=== PATIENT | male | born 1950 | race Caucasian/White ===

== ENCOUNTER → 2017-09-16 | Outpatient (CLI) | payer MEDICARE ==
[~2017-09-16] MED LIST: AMIO200T7 PO; AMLO5TAB2 PO; CHOL500015 PO; DABI150C PO; GARL500T3 PO; OMEGA Q PLUS PO
[2017-09-16 12:08] LABS: BASOPHILS # (AUTO) 0.03 x10^3/uL (0-0.1); BASOPHILS % (AUTO) 1 % (0-1); EOSINOPHILS # (AUTO) 0.14 x10^3/uL (0-0.4); EOSINOPHILS % (AUTO) 3 % (1-7); LYMPHOCYTES # (AUTO) 1.25 x10^3/uL (1-3.4); LYMPHOCYTES % (AUTO) 25 % (22-44); MD NO; MEAN CORPUSCULAR HEMOGLOBIN 34.9 pg (27.5-34.5); MEAN CORPUSCULAR HGB CONC 34.4 g/dL (33.2-36.2); MEAN CORPUSCULAR VOLUME 101.5 fL (81-97); MEAN PLATELET VOLUME 8.5 fL (7.4-10.4); MONOCYTES # (AUTO) 0.53 x10^3/uL (0.2-0.8); MONOCYTES % (AUTO) 10 % (2-9); NEUTROPHILS # (AUTO) 3.15 x10^3/uL (1.8-6.8); NEUTROPHILS % (AUTO) 62 % (42-75); PLATELET COUNT 227 x10^3/uL (130-400); RED BLOOD COUNT 4.82 x10^6/uL (4.38-5.82); RED CELL DISTRIBUTION WIDTH 15.1 % (9.4-14.8)
[2017-09-16 12:11] LABS: INTERNATIONAL NORMALIZED RATIO 1.31 (0.93-1.1); PROTHROMBIN TIME 13.4 Seconds (9.6-11.5)
[2017-09-16 12:12] LABS: ALANINE AMINOTRANSFERASE 37 U/L (12-78); ALBUMIN 3.9 g/dL (3.4-5.0); ANION GAP 4 mmol/L (5-15); CALCIUM 8.6 mg/dL (8.5-10.1); CHLORIDE 109 mmol/L (98-107)
[2017-09-16 12:14] LABS: ALKALINE PHOSPHATASE 59 U/L (45-117); CREATININE 1.02 mg/dL (0.7-1.3); TOTAL PROTEIN 7.7 g/dL (6.4-8.2)
== END ==
LOC: STAR 11:08
PROVIDERS: ATTEND Internal Medicine Cardiovascular Disease
DX: Z01.810 Encounter for preprocedural cardiovascular examination (principal); J90 Pleural effusion, not elsewhere classified
CPT/HCPCS: 36415; 71046; 80053; 85025; 85610; 85730

== ENCOUNTER 2017-09-23 06:15 | Observation (INO) | payer MEDICARE ==
[2017-09-16 12:02] VITALS: BP 130/88
[~2017-09-23] VITALS: Ht 190.5 cm; Wt 107.1 kg
[2017-09-23] MEDS ORDERED: SODIUM CHLORIDE 0.9% 1,000 ML IV SCH (06:28)
[2017-09-23] MEDS ORDERED: MIDAZOLAM 1 MG/ML, 2ML ONE (07:41)
[2017-09-23] MEDS ORDERED: FENTANYL PF 250 MCG/5ML ONE (07:41)
[2017-09-23] MEDS ORDERED: ADENOSINE 6 MG/2 ML ONE (07:45)
[2017-09-23] MEDS ORDERED: HEPARIN 1,000 UNITS/ML, 10ML ONE (07:46)
[2017-09-23] MEDS ORDERED: PROTAMINE SULFATE 10 MG/ML, 5ML ONE (07:46)
[2017-09-23] MEDS ORDERED: ISOPROTERENOL 0.2MG/ML, 5ML ONE (07:46)
[2017-09-23] MEDS ORDERED: ONDANSETRON 2MG/ML, 2ML ONE (07:59)
[2017-09-23] MEDS ORDERED: DEXAMETHASONE 4 MG/ML, 1ML ONE (07:59)
[2017-09-23] MEDS ORDERED: SUCCINYLCHOLINE 20 MG/ML, 10ML ONE (07:59)
[2017-09-23] MEDS ORDERED: ROCURONIUM 10 MG/ML,10ML ONE (07:59)
[2017-09-23] MEDS ORDERED: PROPOFOL 10 MG/ML, 20ML ONE (07:59)
[2017-09-23] MEDS ORDERED: ZOLPIDEM 5MG TABLET PO PRN (10:00)
[2017-09-23] MEDS ORDERED: ACETAMINOPHEN 325 MG TABLET PO PRN ×2 (10:00→10:30)
[2017-09-23] MEDS ORDERED: MIDAZOLAM 1 MG/ML, 2ML IV PRN (10:30)
[2017-09-23] MEDS ORDERED: MEPERIDINE/PF 25MG/0.5ML IVPush PRN (10:30)
[2017-09-23] MEDS ORDERED: ONDANSETRON ODT 8 MG PO PRN (10:30)
[2017-09-23] MEDS ORDERED: ALBUTEROL SULFATE 2.5 MG/3 ML NPPB PRN (10:30)
[2017-09-23] MEDS ORDERED: LABETALOL 5MG/ML, 20ML IV PRN (10:30)
[2017-09-23] MEDS ORDERED: MORPHINE SULFATE 4 MG/ML, 1ML IVPush PRN (10:30)
[2017-09-23] MEDS ORDERED: PROMETHAZINE 12.5 MG SUPP PR PRN (10:30)
[2017-09-23] MEDS ORDERED: OXYcodone 5 MG/5 ML ORAL.SOL UDC PO PRN (10:30)
[2017-09-23] MEDS ORDERED: PROMETHAZINE 25 MG/ML, 1ML IV PRN (10:30)
[2017-09-23] MEDS ORDERED: hydrALAzine 20 MG/ML, 1ML IV PRN (10:30)
[2017-09-23] MEDS ORDERED: FENTANYL PF 100 MCG/2ML IV PRN (10:30)
[2017-09-23] MEDS: DABIGATRAN 150 MG CAPSULE PO SCH ×2 (10:40→21:06)
[2017-09-23] MEDS: AMLODIPINE 5 MG TABLET PO SCH (11:30)
[2017-09-23 14:10] VITALS: BP 118/79
[2017-09-23 19:35] VITALS: BP 115/69
[2017-09-23] MEDS: GARLIC 500 MG PO SCH (21:00)
[2017-09-24 02:00] VITALS: BP 119/75
[2017-09-24 08:58] VITALS: BP 135/89
[2017-09-24] MEDS: AMLODIPINE 5 MG TABLET PO SCH ×2 (08:59→09:00)
[2017-09-24] MEDS: DABIGATRAN 150 MG CAPSULE PO SCH (09:00)
[2017-09-24] MEDS ORDERED: CHOLECALCIFEROL 1,000 UNIT TABLET PO SCH (09:00)
[2017-09-24] MEDS: GARLIC 500 MG PO SCH (09:00)
== END 2017-09-24 11:34 | disposition home or self-care (01) ==
LOC: CACL 06:15 → ORIP 09:50 → 5SO 11:14 → DCLOUNGE 09-24 11:20
PROVIDERS: ADMIT Internal Medicine Cardiovascular Disease; ATTEND Internal Medicine Cardiovascular Disease
DX: I48.92 Unspecified atrial flutter (principal); I48.91 Unspecified atrial fibrillation; I10 Essential (primary) hypertension
CPT/HCPCS: 85347; 93308; 93321; 93325; 93613; 93655; 93656; 93662; C1730; C1731; C1759; C1766; C1893; C1894; C2630; G0378; J0330; J1100; J1644; J2250; J2405; J2704; J2720; J3010; J0153

== ENCOUNTER 2018-06-29 11:03 | Day surgery (SDC) | payer MEDICARE ==
[~2018-06-29] VITALS: Ht 190.5 cm; Wt 104.0 kg
[~2018-06-29 11:03] MED LIST changes: +AMLO-150 PO; -AMLO5TAB2 PO
[2018-06-29] MEDS ORDERED: SODIUM CHLORIDE 0.9% 500 ML IV PRN (11:48)
[2018-06-29 11:51] VITALS: BP 129/102
[2018-06-29] MEDS ORDERED: AMLO5TAB4 PO (12:01)
[2018-06-29 12:05] LABS: BASOPHILS # (AUTO) 0.04 x10^3/uL (0-0.1); BASOPHILS % (AUTO) 1 % (0-1); EOSINOPHILS # (AUTO) 0.18 x10^3/uL (0-0.4); EOSINOPHILS % (AUTO) 3 % (1-7); LYMPHOCYTES # (AUTO) 1.42 x10^3/uL (1-3.4); LYMPHOCYTES % (AUTO) 27 % (22-44); MD NO; MEAN CORPUSCULAR HEMOGLOBIN 34.3 pg (27.5-34.5); MEAN CORPUSCULAR HGB CONC 34.1 g/dL (33.2-36.2); MEAN CORPUSCULAR VOLUME 100.6 fL (81-97); MEAN PLATELET VOLUME 8.5 fL (7.4-10.4); MONOCYTES # (AUTO) 0.67 x10^3/uL (0.2-0.8); MONOCYTES % (AUTO) 13 % (2-9); NEUTROPHILS % (AUTO) 57 % (42-75); PLATELET COUNT 186 x10^3/uL (130-400); RED BLOOD COUNT 4.94 x10^6/uL (4.38-5.82); RED CELL DISTRIBUTION WIDTH 15.3 % (9.4-14.8)
[2018-06-29] MEDS ORDERED: FLUT16SP IH (12:05)
[2018-06-29] MEDS ORDERED: ALBU6.7H INH (12:07)
[2018-06-29 12:18] LABS: CHLORIDE 107 mmol/L (98-107)
[2018-06-29 12:27] LABS: ALANINE AMINOTRANSFERASE 43 U/L (12-78); ALBUMIN 3.8 g/dL (3.4-5.0); ALKALINE PHOSPHATASE 54 U/L (45-117); ANION GAP 8 mmol/L (5-15); CALCIUM 8.7 mg/dL (8.5-10.1); CHOL/HDL RATIO 2.6; CHOLESTEROL, TOTAL 169 mg/dL (140-239); CREATININE 0.86 mg/dL (0.7-1.3); HDL CHOL % 38 % (26-37); HDL CHOLESTEROL (DIRECT) 64 mg/dL (40-60); LDL CHOLESTEROL,CALCULATED 91 mg/dL (54-169); LDL/HDL RATIO 1.4 (0.5-3.0); TOTAL PROTEIN 7.1 g/dL (6.4-8.2); TRIGLYCERIDES 71 mg/dL (50-200); VLDL CHOLESTEROL 14 mg/dL (0-25)
[2018-06-29] MEDS ORDERED: PROPOFOL 10 MG/ML, 20ML ONE (12:37)
== END 2018-06-29 14:00 | disposition home or self-care (01) ==
LOC: CACL 11:03
PROVIDERS: ATTEND Internal Medicine Cardiovascular Disease
DX: I48.92 Unspecified atrial flutter (principal); Z86.010 Personal history of colon polyps; Z79.899 Other long term (current) drug therapy
CPT/HCPCS: 36415; 80053; 80061; 85025; 92960; 93005; J2704

== ENCOUNTER 2018-10-11 08:44 | Observation (INO) | payer MEDICARE ==
[~2018-10-11] VITALS: Ht 190.5 cm; Wt 106.1 kg
[2018-10-12 08:15] VITALS: BP 135/93
== END 2018-10-12 12:26 | disposition home or self-care (01) ==
LOC: CACL 08:44 → ORIP 10:46 → 5SO 14:05
PROVIDERS: ADMIT Internal Medicine Cardiovascular Disease; ATTEND Internal Medicine Cardiovascular Disease
DX: I48.91 Unspecified atrial fibrillation (principal); R53.83 Other fatigue; R00.1 Bradycardia, unspecified; I45.3 Trifascicular block; I44.0 Atrioventricular block, first degree; I45.10 Unspecified right bundle-branch block; I10 Essential (primary) hypertension; Z79.899 Other long term (current) drug therapy
CPT/HCPCS: 33208; 36415; 71045; 80048; 85025; 96365; 96366; 99156; 99157; C1779; C1785; C1892; G0378; J0690; J2250; J3010; J3490

== ENCOUNTER → 2020-06-13 | Outpatient (CLI) | payer MEDICARE ==
[~2020-06-13] MED LIST changes: +ALBU6.7H8 INH; +AMLO5TAB4 PO; +ASPI81TA45 PO; +CETI10TA18 PO; +FLUT16SP24 IH; +SOTA80TA PO
== END | disposition home or self-care (01) ==
LOC: RAD 10:46
PROVIDERS: ATTEND Family Medicine
DX: M47.26 Other spondylosis with radiculopathy, lumbar region (principal); M48.061 Spinal stenosis, lumbar region without neurogenic claudication; M25.78 Osteophyte, vertebrae
CPT/HCPCS: 72148

== ENCOUNTER → 2020-09-09 | Outpatient (CLI) | payer MEDICARE | END | disposition home or self-care (01) | LOC: CFH 08:25 | PROVIDERS: ATTEND Nurse Practitioner Gerontology | DX: M47.817 Spondylosis without myelopathy or radiculopathy, lumbosacral region (principal); M48.062 Spinal stenosis, lumbar region with neurogenic claudication | CPT/HCPCS: 72110 ==